=== PATIENT | male | born 1940 | race Caucasian/White ===

== ENCOUNTER 2019-02-10 14:58 | Inpatient (IN) | payer MEDICAID ==
[~2019-02-10] VITALS: Ht 188 cm; Wt 69.7 kg
[~2019-02-10 14:58] MED LIST: ALBU8.5H8 INH; AZIT250T13 PO; DIGO125T PO; FLUT1AER INHALATION; LEVO25TA6 PO; MED4DP PO; METO-448 PO; RIVA20TA5 PO; SIMV10TA PO; TIOT18CA INHALATION
[2019-02-10] MEDS: ARTIFICIAL TEARS 15 ML OPH BOTH EYES SCH ×2 (16:45→21:00)
[2019-02-10] MEDS ORDERED: IPRATROPIUM (NEB) 0.5 MG/2.5 ML AMP NEB STA (18:10)
[2019-02-10] MEDS ORDERED: ALBUTEROL 0.083% (NEB) 2.5 MG/3 ML AMP NEB STA (18:10)
[2019-02-10] MEDS ORDERED: ONDANSETRON 4 MG INJ IV PRN ×2 (19:30→20:00)
[2019-02-10] MEDS ORDERED: ACETAMINOPHEN 325 MG TAB PO PRN ×2 (19:30→20:00)
[2019-02-10] MEDS ORDERED: SOD CHLORIDE 0.9% 100 ML ONE (19:33)
[2019-02-10] MEDS ORDERED: IOHEXOL 100 ML ONE (19:33)
[2019-02-10] MEDS ORDERED: NACL 0.9% 3 ML SYG IV SCH (20:00)
[2019-02-10] MEDS ORDERED: HYDROCODONE/APAP (5/325) TAB PO PRN (20:00)
[2019-02-10] MEDS ORDERED: morphine 2 MG INJ IV PRN (20:00)
[2019-02-10] MEDS ORDERED: BISACODYL (EC) 5 MG TAB PO PRN (20:00)
[2019-02-10] MEDS ORDERED: DOCUSATE SODIUM 100 MG CAP PO PRN (20:00)
[2019-02-10] MEDS ORDERED: GUAIFENESIN/DM 5ML CUP PO PRN (21:00)
[2019-02-10] MEDS: AZITHROMYCIN 250 MG TAB PO SCH (21:29)
[2019-02-10] MEDS ORDERED: ALBUTEROL/IPRATROPIUM (NEB) 3 ML AMP HHN PRN (21:30)
[2019-02-10] MEDS ORDERED: MAGNESIUM SULFATE 2 GM/50 ML 50 ML IVPB ONE (21:30)
[2019-02-10 23:14] VITALS: BP 132/61; PULSE 90; RESP 20
[2019-02-10] MEDS: METHYLPREDNISOLONE 125 MG INJ IV SCH (23:48)
[2019-02-10] MEDS: FAMOTIDINE 20 MG TAB PO SCH (23:49)
[2019-02-10] MEDS: ALBUTEROL/IPRATROPIUM (NEB) 3 ML AMP HHN SCH (23:59)
[2019-02-11] VITALS: Ht 188 cm; Wt 69.7 kg
[2019-02-11 03:16] VITALS: BP 108/62; PULSE 80
[2019-02-11 07:30] VITALS: BP 115/76; PULSE 77; RESP 20
[2019-02-11] MEDS: ALBUTEROL/IPRATROPIUM (NEB) 3 ML AMP HHN SCH ×2 (07:33→16:27)
[2019-02-11] MEDS: METHYLPREDNISOLONE 125 MG INJ IV SCH ×3 (08:03→17:08)
[2019-02-11] MEDS: AZITHROMYCIN 250 MG TAB PO SCH (08:04)
[2019-02-11] MEDS: FAMOTIDINE 20 MG TAB PO SCH (08:05)
[2019-02-11] MEDS ORDERED: ENOXAPARIN 40 MG/0.4 ML SYG SC SCH (09:00)
[2019-02-11] MEDS: ARTIFICIAL TEARS 15 ML OPH BOTH EYES SCH ×3 (09:47→17:09)
[2019-02-11 11:21] VITALS: BP 106/62; PULSE 80; RESP 20
[2019-02-11 15:27] VITALS: BP 136/71; PULSE 83; RESP 20
== END 2019-02-11 19:43 | disposition home or self-care (01) | DRG 190 ==
LOC: E/R 14:58 → 6WM 19:23
PROVIDERS: ADMIT Internal Medicine; ATTEND Internal Medicine
DX: J44.1 Chronic obstructive pulmonary disease with (acute) exacerbation (principal); J96.01 Acute respiratory failure with hypoxia; I48.2 Chronic atrial fibrillation; I10 Essential (primary) hypertension; E03.9 Hypothyroidism, unspecified; I25.10 Atherosclerotic heart disease of native coronary artery without angina pectoris; E78.5 Hyperlipidemia, unspecified; Z87.891 Personal history of nicotine dependence; Z79.01 Long term (current) use of anticoagulants; Z95.1 Presence of aortocoronary bypass graft
CPT/HCPCS: 36415; 36600; 71045; 71250; 71275; 80053; 82803; 83036; 83605; 83735; 83880; 84100; 84439; 84443; 84481; 84484; 85025; 85610; 86480; 93005; 93306; 93970; 94640; 94664; J1650; J2930; J3475; Q9967